=== PATIENT | female | born 1945 ===

== ENCOUNTER 2022-04-25 11:52 | Emergency (ER) | payer SELFPAY ==
[~2022-04-25] VITALS: Ht 160 cm; Wt 70.0 kg
[2022-04-25] MEDS ORDERED: HYDROcodone/acetaminophen 10/325mg tab PO STA (12:21)
[2022-04-25] MEDS ORDERED: MIDAZolam 5mg/ml 2ml vial IV ONE (14:25)
[2022-04-25] MEDS ORDERED: BUPIVAcaine 0.5% W/EPI /PF 30ml vial IM ONE (14:25)
[2022-04-25] MEDS ORDERED: fentaNYL/PF 50MCG/1 ML 2ML syringe IV ONE (14:25)
[2022-04-25] MEDS ORDERED: BUPIVAcaine 0.5% W/EPI /PF 10ml vial IJ ONE (15:25)
[2022-04-25] MEDS ORDERED: ONDA4TAB12 PO (16:01)
[2022-04-25] MEDS ORDERED: HYDR-3965 PO (16:01)
[2022-04-25 16:26] VITALS: BP 131/55
== END 2022-04-25 16:56 | disposition home or self-care (01) ==
LOC: ER 11:53
DX: S52.92XA Unspecified fracture of left forearm, initial encounter for closed fracture (principal); M25.552 Pain in left hip; W18.39XA Other fall on same level, initial encounter; Y93.89 Activity, other specified; Y92.89 Other specified places as the place of occurrence of the external cause; Y99.8 Other external cause status
CPT/HCPCS: 25605; 73100; 73110; 73502; 94799; 96374; 96375; 99152; 99153; 99285; J2250; J3010; S0020; 94760